=== PATIENT | male | born 1965 | race Caucasian/White ===

== ENCOUNTER 2017-05-11 01:15 | Observation (INO) | payer OTHER ==
[~2017-05-11] VITALS: Ht 175.3 cm; Wt 127.0 kg
--- NOTE | 2017-05-11 01:19 | ED DYSPNEA/ASTHMA COMPLAINT ---
History of Present Illness General Chief Complaint: Dyspnea (COPD, CHF, Other) Stated Complaint: PT C/O DIFF BREATHING 02 SAT 94% HX ASTHMA/COPD Source: patient Exam Limitations: no limitations Vital Signs & Intake/Output Vital Signs & Intake/Output Vital Signs Date Time Temp Pulse Resp B/P B/P Pulse O2 O2 Flow FiO2 Mean Ox Delivery Rate 05/11 0401 70 16 117/56 96 Nasal 2.0L Cannula 05/11 0246 96 Nasal 2.0L Cannula 05/11 0243 90 Room Air 05/11 0127 96.0 74 20 109/72 96 Room Air Allergies Coded Allergies: codeine (Mild, RASH 05/11/17) Triage Nurses Notes Reviewed? yes Onset: Gradual Duration: day(s): Timing: recent history Severity: moderate Activities at Onset: none Prior Episodes/Possible Cause: occasional episodes Modifying Factors: Improves With: rest. Associated Symptoms: cough, wheezing HPI: 52 yo gentleman h/o chf, cad, cva, [place] in october 2016, "they weren't able to get stents in me" presents with dyspnea and dizziness for the past 1-2 days, "but it got real bad today." pt states the he has not taken any blood pressure medications, "because my blood pressure has been too low." He note 9/10 sub sternal chest pain since this afternoon. Past History Medical History Any Pertinent Medical History? see below for history Neurological: CVA Cardiovascular: CAD, CHF, hyperlipidemia, myocardial infarction Respiratory: COPD Renal: nephrolithiasis Surgical History Surgical History: none Family History Hx Contributory? No Review of Systems Review of Systems Constitutional: Reports: no symptoms. EENTM: Reports: no symptoms. Respiratory: Reports: no symptoms. Cardiovascular: Reports: no symptoms. GI: Reports: no symptoms. Genitourinary: Reports: no symptoms. Musculoskeletal: Reports: no symptoms. Skin: Reports: no symptoms. Neurological/Psychological: Reports: no symptoms. Hematologic/Endocrine: Reports: no symptoms. Immunologic/Allergic: Reports: no symptoms. All Other Systems: Reviewed and Negative Physical Exam Physical Exam General Appearance: well developed/nourished Head: atraumatic, normal appearance Eyes: Bilateral: normal appearance. Ears, Nose, Throat: normal pharynx, normal ENT inspection Neck: normal inspection, supple, full range of motion Respiratory: decreased breath sounds Cardiovascular: regular rate/rhythm Gastrointestinal: normal bowel sounds, soft, non-tender, no organomegaly Extremities: 2+ edema bilaterally Neurologic/Psych: slight right sided weakness (at baseline per pt) Core Measures ACS in differential dx? No CVA/TIA Diagnosis No Sepsis Present: No Sepsis Focused Exam Completed? No Progress Differential Diagnosis: AMI, CHF, COPD, pneumonia Plan of Care: Orders Procedure Date/time Status Nothing by Mouth 05/11 B Active Patient Data 05/11 431 Active Saline Lock 05/[address] in observation 05/11 424 Active Misc Message 05/11 424 Active ED Holding Orders 05/11 424 Active Vital Signs 05/11 424 Active Code Status 05/11 424 Active Intake & Output 05/11 156 Active URINALYSIS 05/11 128 Active TROPONIN LEVEL 05/11 118 Complete LIPASE 05/11 118 Complete HEPATIC FUNCTION PANEL 05/11 118 Complete D-DIMER 05/11 118 Complete CBC WITHOUT DIFFERENTIAL 05/11 118 Complete B-TYPE NATRIURETIC PEP (BNP) 05/11 118 Complete BASIC METABOLIC PANEL 05/11 118 Complete AMYLASE 05/11 118 Complete EKG 05/11 118 Active Laboratory Tests 05/11/17 0147: Anion Gap 8, Estimated GFR > 60, BUN/Creatinine Ratio 13.3, Glucose 97, Calcium 8.2 L, Total Bilirubin 0.2, Direct Bilirubin 0.2, AST 11 L, ALT 27, Alkaline Phosphatase 64, Troponin I < 0.01, Ugv-R-Haamtuoxewy Pept 176 H, Total Protein 5.3 L, Albumin 3.0 L, Amylase 37, Lipase 92, D-Dimer High Sensitivty < 200, CBC w Diff NO MAN DIFF REQ, RBC 4.49 L, MCV 87.3, MCH 28.8, MCHC 33.0, RDW 14.5 , MPV 8.4, Gran % 67.8, Lymphocytes % 19.5 L, Monocytes % 9.2, Eosinophils % 3.0, Basophils % 0.5, Absolute Granulocytes 5.9, Absolute Lymphocytes 1.7, Absolute Monocytes 0.8 H, Absolute Eosinophils 0.3, Absolute Basophils 0 Diagnostic Imaging: Viewed by Me: Radiology Read, CT Scan. Discussed w/RAD: Radiology Read, CT Scan. Radiology Impression: PATIENT: HERMINIO NEVAREZ PRESENT AGE: 52 PATIENT ACCOUNT NO: [id number] : 63 LOCATION: [facility] ORDERING PHYSICIAN: Krishna Vaughn MD SERVICE DATE: 05/11/17 EXAM TYPE: CAT - CT HEAD WO IV CONTRAST EXAMINATION: CT HEAD WITHOUT CONTRAST CLINICAL INFORMATION: Dizziness COMPARISON: None TECHNIQUE: Contiguous axial imaging was performed from the skull base to vertex without intravenous administration of contrast. DLP: 938.39 mGy-cm FINDINGS: There is no evidence of acute intracranial hemorrhage or territorial infarction. No abnormal mass effect or midline shift is seen. Izquierdo to white matter differentiation is well preserved. No extra-axial fluid collections are identified. The ventricles are normal in size. There is no abnormal attenuation within the brain parenchyma. The osseous structures and soft tissues are normal. There is partial opacification of the right maxillary and left sphenoid sinuses. There is mild mucosal thickening of the left maxillary sinus and bilateral ethmoid air cells. The mastoid air cells are well-aerated. IMPRESSION: No acute intracranial pathology. DICTATED BY: Patrick Ritter MD DATE/TIME DICTATED:05/11/17242 PROFESSOR OF FORESTRY:LEVY DATE/TIME TRANSCRIBED:05/11/17242 CONFIDENTIAL, DO NOT COPY WITHOUT APPROPRIATE AUTHORIZATION. <Electronically signed in Other Vendor System> SIGNED BY: Patrick Ritter MD 05/11/17 025 CXR Impression: PATIENT: HERMINIO NEVAREZ PRESENT AGE: 52 PATIENT ACCOUNT NO: [id number] : 63 LOCATION: [facility] ORDERING PHYSICIAN: Krishna Vaughn MD SERVICE DATE: 05/11/17 EXAM TYPE: RAD - XRY- PORTABLE CHEST XRAY EXAMINATION: XR PORTABLE CHEST CLINICAL INFORMATION: Dyspnea , CHF COMPARISON: None TECHNIQUE: Portable frontal view of the chest was obtained. FINDINGS: The lungs are somewhat hypoinflated, and there is slight asymmetric elevation of the left hemidiaphragm. There is streaky opacity at the left base favoring subsegmental atelectasis. The lungs otherwise appear clear. No evidence of pneumothorax, significant pleural effusion, or pulmonary edema. The cardiomediastinal silhouette appears grossly unremarkable for technique. No acute osseous findings are seen. IMPRESSION: Low lung volumes with streaky left basilar opacity favoring atelectasis. No overt edema. DICTATED BY: Patrick Ritter MD DATE/TIME DICTATED:05/11/17241 PROFESSOR OF FORESTRY:LEVY DATE/TIME TRANSCRIBED:05/11/17241 CONFIDENTIAL, DO NOT COPY WITHOUT APPROPRIATE AUTHORIZATION. <Electronically signed in Other Vendor System> SIGNED BY: Patrick Ritter MD 05/11/17246 Initial ED EKG: nsr, no acute changes. Departure Departure Disposition: STILL A PATIENT Condition: Stable Clinical Impression Primary Impression: Chest pain Secondary Impressions: Dizziness Departure Forms: Customer Survey General Discharge Information Observation Note Spoke With: Jose Armando YOU,[facility] Patient In: Non-ED OBS Care Area Rationale for Observation: My rational for observation is as follows . pt with chest pain and dyspnea, resolved with aspirin and 02 (nitro spared due to relatively low bp).... this could represent angina... pt merits serial trops/ ekg/cards eval in am... discussed with dr. tejada, covering for dr. cooper. pt also with intractable dizziness, not peripheral vertigo... tia is likely... pt merits neuro consult, consider mri. Critical Care Note Critical Care Note Critical Care Time: non-applicable
[2017-05-11 01:55] LABS: ABSOLUTE BASOPHIL COUNT 0 /CUMM (0.0-0.2); ABSOLUTE EOSINOPHIL COUNT 0.3 /CUMM (0.0-0.7); ABSOLUTE GRANULOCYTE CT 5.9 /CUMM (1.4-6.5); ABSOLUTE LYMPH COUNT 1.7 /CUMM (1.2-3.4); ABSOLUTE MONOCYTE COUNT 0.8 /CUMM (0.10-0.60); BASOPHIL % 0.5 % (0.0-2.0); GRANULOCYTE % 67.8 % (42.2-75.2); HEMATOCRIT 39.2 % (42-52); MEAN CORPUSCULAR HGB 28.8 PG (27.0-31.0); MEAN CORPUSCULAR VOLUME 87.3 FL (80.0-94.0); MEAN PLATELET VOLUME 8.4 FL (7.4-10.4); PLATELET COUNT 216 /CUMM (130-400); RBC DISTRIBUTION WIDTH 14.5 % (11.5-14.5); RED BLOOD CELL CT 4.49 /CUMM (4.70-6.10); WHITE BLOOD CELL COUNT 8.8 /CUMM (4.8-10.8)
--- NOTE | 2017-05-11 02:47 | RADIOLOGY REPORT ---
EXAMINATION: XR PORTABLE CHEST CLINICAL INFORMATION: Dyspnea, CHF COMPARISON: None TECHNIQUE: Portable frontal view of the chest was obtained. FINDINGS: The lungs are somewhat hypoinflated, and there is slight asymmetric elevation of the left hemidiaphragm. There is streaky opacity at the left base favoring subsegmental atelectasis. The lungs otherwise appear clear. No evidence of pneumothorax, significant pleural effusion, or pulmonary edema. The cardiomediastinal silhouette appears grossly unremarkable for technique. No acute osseous findings are seen. IMPRESSION: Low lung volumes with streaky left basilar opacity favoring atelectasis. No overt edema.
--- NOTE | 2017-05-11 02:51 | CT SCAN REPORT ---
EXAMINATION: CT HEAD WITHOUT CONTRAST CLINICAL INFORMATION: Dizziness COMPARISON: None TECHNIQUE: Contiguous axial imaging was performed from the skull base to vertex without intravenous administration of contrast. DLP: 938.39 mGy-cm FINDINGS: There is no evidence of acute intracranial hemorrhage or territorial infarction. No abnormal mass effect or midline shift is seen. Izquierdo to white matter differentiation is well preserved. No extra-axial fluid collections are identified. The ventricles are normal in size. There is no abnormal attenuation within the brain parenchyma. The osseous structures and soft tissues are normal. There is partial opacification of the right maxillary and left sphenoid sinuses. There is mild mucosal thickening of the left maxillary sinus and bilateral ethmoid air cells. The mastoid air cells are well-aerated. IMPRESSION: No acute intracranial pathology.
--- NOTE | 2017-05-11 04:57 | History & Physical ---
Arnie YOU,[facility] 05/11/17 0456: General Information and HPI MD Statement: I have seen and personally examined HERMINIO SIMMONS and documented this H&P. The patient is a 52 year old M who presented with a patient stated chief complaint of [chest pain, dizziness]. Source of Information: patient Exam Limitations: poor historian History of Present Illness: 52 yo M with PMH of CAD, CHF, hyperlipidemia, TN, COPD, CVA (follows at [facility] just for CVA) presented to the ED with complains of shortness of breath on exertion and dizziness/lightheadedness for the past 2-3 days. The patient states that earlier today he was driving from [place] when he didn't feel so good and decided to come to the ED since it was on the way. He also experienced some chest pain around 8/10, sharp in nature, radiating to his left neck at the time of presentation to the ED, which seems to have resolved at the time of the interview. He mentions having similar pain of lesser intensity yesterday afternoon for which he took motrin without significant relief in his symptoms. He normally goes to [facility] for his medical check up. Patient is an extremely poor historian. He fell asleep several times during the interview making it extremely difficult to elicit information from him. He does not recall any medications other than Lipitor. He states he is homeless and lives in his car. He mentions his PCP is Dr Agustina Woods in [place]. His Pharmacy is [facility] in [place] Allergies/Medications Allergies: Coded Allergies: codeine (Mild, RASH 05/11/17) Home Med list Aspirin (Aspirin*) 81 MG TAB.CHEW 1 TAB PO DAILY HEART HEALTH (Reported) Atorvastatin Calcium 20 MG TABLET 1 TAB PO DAILY HLD (Reported) Metoprolol Succinate 50 MG TAB.ER.24H 1 TAB PO DAILY BLOOD PRESSURE (Reported ) Past History Travel History Traveled to [place] past [place] day No Medical History Neurological: CVA EENT: NONE Cardiovascular: CAD, CHF, hyperlipidemia, myocardial infarction Respiratory: COPD Hepatic: NONE Renal: nephrolithiasis Musculoskeletal: gout Psychiatric: NONE Endocrine: NONE Blood Disorders: NONE Surgical History Surgical History: none Review of Systems Review of Systems Constitutional: Reports: unexplained weight loss. Cardiovascular: Reports: chest pain, palpitations, peripheral edema. Respiratory: Reports: cough, short of breath. GI: Denies: abdominal pain. Genitourinary: Reports: no symptoms. Musculoskeletal: Reports: no symptoms. Neurological/Psychological: Reports: headache. Exam & Diagnostic Data Last 24 Hrs of Vital Signs/I&O Vital Signs Date Time Temp Pulse Resp B/P B/P Pulse O2 O2 Flow FiO2 Mean Ox Delivery Rate 05/11 0518 96.7 57 14 104/56 94 Nasal 2.0L Cannula 05/11 0401 70 16 117/56 96 Nasal 2.0L Cannula 05/11 0246 96 Nasal 2.0L Cannula 05/11 0243 90 Room Air 05/11 0127 96.0 74 20 109/72 96 Room Air Intake & Output 05/11 0800 05/11 0000 05/10 1600 Intake Total Output Total Balance Patient 280 lb Weight Physical Exam General Appearance Alert, Oriented X3, Cooperative, No Acute Distress Skin No Rashes, No Breakdown Skin Temp/Moisture Exam: Warm/Dry Sepsis Skin Exam (color): Normal for Ethnicity HEENT Atraumatic Cardiovascular Normal S1, Normal S2, No Murmurs Lungs decreased breath sounds Abdomen Soft, No Tenderness Neurological Normal Speech Extremities No Edema Assessment/Plan Assessment: 52 yo M with PMH of CAD, CHF, hyperlipidemia, TN, COPD, CVA (no deficits) presented to the ED with complains of shortness of breath on exertion and dizziness/lightheadedness for the past 2-3 days. Assessment: 1. Chest Pain, history of CAD. Will need to rule out ACS 2. ?COPD Exacerbation 3. History of CVA 4. Obesity 5. ?OHS/GALE Plan: * Admit patient in Obs * Will r/o ACS with serial trops and EKG. * He was administered one time dose of Aspirin 325mg in the ED which improved his symptoms. * Continue supplemental oxygen to maintain target sats >92% * Cardiology consult in am * Echocardiogram * Follow up blood alcohol levels * Follow up Lipid panel, HbA1c, TFTs * Start SoluMedrol 40mg q12 for ? COPD Exacerbation. Will taper as tolerated. He does have decreased breath sounds on exam which could also be due to his body habitus. * Please obtain patient's medication list from his pharmacy ([facility] in [place]) or from his PCP (Dr Agustina Woods). Also any records about his past medical history. * Consider outpatient sleep study for OHS/GALE * Diet: Heart Healthy * DVT Prophylaxis: SC Lovenox * Code: Full Code As Ranked By This Provider Problem List: 1. Chest pain Core Measures/Misc (12/13) Acute Coronary Syndrome ACS Diagnosis: No Congestive Heart Failure Congestive Heart Failure Diagnosis No Cerebrovascular Accident CVA/TIA Diagnosis: No VTE (View Protocol) VTE Risk Factors Age>40 No Mechanical VTE Prophylaxis d/t N/A MechProphylax Ordered No VTE Pharm Prophylaxis d/t NA PharmProphylax ordered Sepsis (View protocol) Sepsis Present: No Zhen YOU,[facility] 05/11/17 0913: Observation Initial Note - I have personally examined HERMINIO SIMMONS on 05/11/17 at 0919. The disposition of HERMINIO SIMMONS is uncertain at this time and before a determination can be made, he requires a period of observation for the following reasons given the patient's chest pain on exertion is imperative that we will to monitor for any acute coronary event. Failure to do so may result in hemodynamic instability and result in cardiovascular collapse and possobly . Exam & Diagnostic Data Last 24 Hrs of Vital Signs/I&O Vital Signs Date Time Temp Pulse Resp B/P B/P Pulse O2 O2 Flow FiO2 Mean Ox Delivery Rate 05/11 0618 96.7 57 14 104/56 94 Nasal 2.0L Cannula 05/11 0401 70 16 117/56 96 Nasal 2.0L Cannula 05/11 0246 96 Nasal 2.0L Cannula 05/11 0243 90 Room Air 05/11 0127 96.0 74 20 109/72 96 Room Air Intake & Output 05/11 1600 05/11 0800 05/11 0000 Intake Total Output Total Balance Patient 127.006 kg Weight Resident Review Statement Resident Statement: examined this patient, discussed with mechanical engineering intern Other Findings: H Mr Simmons is a 52 old gentleman past medical history of CHF, COPD, coronary artery disease, CVA (mid 2016) who presented to the emergency department at [facility] complaining of chest pain, lightheadedness and dyspnea on exertion. Patient states that his symptoms have begun over last 2-3 days progressively getting worse. The evening prior to admission he was driving from [place] back home and since [facility] happened to be on the way he decided to pop in. At the time of our clinical interaction the patient said he recently experienced chest pain. Pain was rated at a 8 out of 10 in severity described as sharp. Patient states pain radiated up to the left neck. Patient also reports that he's been unable to tolerate very much physical activity. Stating he gets very weak with minimal exertion. He also endorses bilateral foot pain and burning. It must be noted that the patient is extremely poor historian was unable to provide a clear history. He fell asleep multiple times during our clinical interaction despite prompting prompted to wake up on multiple occasions. He was unable to recall any of his medications.Claim history unsuccessful in determining what medications the patient takes. Patient does also not have any family members for us to call for collateral information. Does state that patient's PCP is Dr. Woods. The patient regularly follows up for care at [facility]. R review of systems the patient does endorse a recent weight loss of approximately 10 pounds this is unintentional. He also endorses headaches rated an 8 out of 10 severity. Described as generalized. Endorses occasional palpitations. E Temperature 90.6. Respirations 20. Blood pressure 109/72. Heart rate 74. General Appearance Alert, Oriented X3, Cooperative, No Acute Distress. Obese. Skin No Rashes, No Breakdown Skin Temp/Moisture Exam: Warm/Dry HEENT Atraumatic Cardiovascular Normal S1, Normal S2, No Murmurs. Distant Heart Sounds (likely due to habitus) Lungs decreased breath sounds Abdomen Soft, No Tenderness Neurological Normal Speech Extremities Mild tenderness with light touch. L: WBC 8.8. H&H 12.2 and 39.2. Platelets 216. Sodium 142. Potassium 3.6. BUN 12. Creatinine 0.9. BNP 176. I As Above A/P Mr Simmons is a 52 old gentleman past medical history of CHF, COPD, coronary artery disease, CVA (mid 2016) who presented to the emergency department at [facility] complaining of chest pain, lightheadedness and dyspnea on exertion. Given multiple risk factors his chest pain is possibly ischemic in nature and its imperative that need to be closely monitored over the next 24-48 hours. Chest pain rule out ACS. History of CHF. History of hyperlipidemia. History of COPD. History of CVA. Morbidly Obese Placed the patient in observation in telemetry. Serial EKGs and troponins to rule out ACS. Consider cardiology consultation in a.m. Since proBNP is not drastically elevated we'll hold off on aggressive diuresis. Monitor ins and outs and daily weights. Solu-Medrol 40 mg every 12 for questionable exacerbation of COPD. Obtain lipid panel. Obtain hemoglobin A1c. Obtain echocardiogram. Obtain urine toxicology. Obtain thyroid studies. Check orthostatic vital signs. Every 1 hour neurochecks. Should any neurological deficits been noted consider imaging. Patient may benefit from sleep study as an outpatient. Consider Nutritional consult May consider small dose of gabapentin for peripheral leg pain. Patient's pharmacy is [facility] in [place] he is locations in a.m. will need to be confirmed. Diet heart healthy. DVT prophylaxis with Lovenox. Patient is a full code.
--- NOTE | 2017-05-11 08:14 | Event Note ---
Event Note Event Note: Called pt's PCP: Dr Agustina Woods at [facility] to verify his medical conditions and medications and concerns at 9:20am 05/11/17. Received a call back at 10:30 am and verified his medical/social history as follows: * Patient has h/o HTN on betablocker, COPD not on home oxygen or steroid, likely GALE * Very non-compliant with medications, follow up visits, and lab tests * Patient has been refered to [facility] Inspector, sleep study and community center director in the past and among them likely has only been to a community center director. * Patient was last seen by the PCP yesterday for urinary frequency without burning sensation, discharge, fever, chills, headache, shortness of breath, chest pain, or palpitation, and was discharged on Cipro with labwork recommendation which he did not go for. * Of note, he appearantly is a homeless person who was living in a [facility] in [place], but recently has been living out of his car/truck. He likely had filed for disability (?reason) and was denied and since then has not been following up closely per his PCP. * He appearantly visits many hospitals and doctors and is inconsistent about his symptoms. He had mentioned to his PCP that he was recently discharged from [facility] about a month ago, but we do not have any records of him being here according to the medical records. Few things to add from and after this conversation: * Interestingly, the patient was not giving a coherant history as he mentioned that he was on his way from [place] to [facility] where his PCP was, and on his way he felt chest pain and came to [facility]. This does not seem to match with what we heard from his PCP who also faxed us his medication list today. * According to the community center director, yesterday he had left against medical advice from one of the emergency department of [facility] where appearantly he had visited 20 times already. Plans for the day: * Ruled out ACS with serial trops and EKG * Cardiology recs * bone worker consult, regarding on homelessness and non-compliance * Will keep him on ASA, statin and beta-ivy per cardiology. * Possible discharge tomorrow.
--- NOTE | 2017-05-11 14:30 | PN- Att Addend ---
Attending Addendum Attending Brief Note Patient seen and examined. Discussed with culinary internship and resident. Patient just wants to be left alone and wants to sleep. He keeps falling asleep as I'm talking to him. I got a lot of collateral information from Dr. Mcknight who I called for a cardiology consult and he pulled up his records in [facility]. In addition the patient's PCP spoke to the resident. It appears that Mr. Simmons has underlying coronary artery disease that was non-stentable and he's been managed on aspirin , statin and beta ivy. He has needed Norvasc for high blood pressure. He has made more than 20 ED visits in the recent past to [facility], the most recent one being yesterday and it appears that he does not follow-up with the PCP, is noncompliant with his medications and follow-up and is homeless and living in his car. Yesterday in the emergency room when he was at [facility] when he was told that he is not going to be admitted, he got very very upset and walked out of there. He was brought in here for an observation for chest pain. So far all of his workup is negative. All of his labs are negative , I was worried about hypercapnia but his blood gas is normal, his CT head is negative, EKG is negative for any acute changes and his troponin has been negative. He is not diabetic or prediabetic with a hemoglobin A1c of 6.1. At this point I think that his primary issue is social and lack of a place to stay. I don't think he has any reason to be admitted. Will need to get social work and case management involved to discuss the home situation. Will continue the aspirin, statin, beta ivy. His pressure has been fine and will hold off on the norvasc and will follow closely. He does not need the monitoring manager.
--- NOTE | 2017-05-11 18:52 | Cons- Cardiology ---
General Information and HPI Consulting Request Date of Consult: 05/11/17 Requested By: Jose Armando YOU,Kirti Reason for Consult: Chest pain History of Present Illness: The patient is a 52-year-old male with history of CAD, CHF, hyperlipidemia, NV, and CVA. He presents with complaint of dyspnea on exertion, lightheadedness, dizziness over the past few days. He also experienced a brief episode of left- sided chest discomfort which she described as a sharp pain which was an 8 out of 10, radiating to the left side of his neck. This lasted for a few minutes at the time of presentation, but subsequently resolved. He has had multiple emergency department visits at other hospitals, most recently 2 days ago at [facility] where workup was normal and he was discharged to home. He has a history of coronary artery disease which has been treated medically after an attempted intervention on a chronic total occlusion was unsuccessful. He is homeless and has been living in his car for the past few weeks after being refused admission to shelters. The patient is sleepy, and he is continually is falling asleep during the interview. He is a poor historian. No orthopnea. No diaphoresis. No nausea or vomiting. No palpitations. Allergies/Medications Allergies: Coded Allergies: codeine (Mild, RASH 05/11/17) Current Medications: Current Medications Sig/Devin Start time Last Medication Dose Route Stop Time Status Admin Aspirin 0 .STK-MED ONE 05/11 1454 DC PO Aspirin 81 MG DAILY 05/11 1421 AC 05/11 PO 1454 Aspirin 0 .STK-MED ONE 05/11 0152 DC PO Aspirin 325 MG ONCE ONE 05/11 0130 DC 05/11 PO 05/11 0131 0149 Atorvastatin Calcium 20 MG 1700 05/11 1700 AC PO Enoxaparin Sodium 40 MG DAILY 05/11 1000 AC 05/11 SC 0915 Furosemide 0 .STK-MED ONE 05/11 0427 DC IV Furosemide 20 MG ONCE ONE 05/11 0345 DC 05/11 IV 05/11 0346 0424 Insulin Aspart 0 AT BEDTIME 05/11 2200 CAN SC Insulin Aspart 0 TIDAC 05/11 0800 DC SC Methylprednisolone 40 MG Q12 05/11 1000 DC 05/11 IV 0915 Metoprolol Succinate 50 MG DAILY 05/11 1422 AC 05/11 PO 1454 Review of Systems Review of Systems: No rash. No tremor. No fever. No chills. All other systems were reviewed, and were noted to be negative. Past History Travel History Traveled to [place] past [place] No Medical History Neurological: CVA EENT: NONE Cardiovascular: CAD, CHF, hyperlipidemia, myocardial infarction Respiratory: COPD Hepatic: NONE Renal: nephrolithiasis Musculoskeletal: gout Psychiatric: NONE Endocrine: NONE Blood Disorders: NONE Surgical History Surgical History: 1 Family History Relations & Conditions If Any: FATHER Myocardial infarction Exam & Diagnostic Data Vital Signs and I&O Vital Signs Date Time Temp Pulse Resp B/P B/P Pulse O2 O2 Flow FiO2 Mean Ox Delivery Rate 05/11 1703 96.6 68 20 99/56 94 Room Air 05/11 1454 98.0 72 20 105/57 05/11 1435 98.0 72 20 105/57 97 Room Air 05/11 1216 97.0 60 20 104/60 97 Nasal 1.0L Cannula 05/11 0924 96.0 63 20 102/67 98 Nasal 2.0L Cannula 05/11 0618 96.7 57 14 104/56 94 Nasal 2.0L Cannula 05/11 0401 70 16 117/56 96 Nasal 2.0L Cannula 05/11 0246 96 Nasal 2.0L Cannula 05/11 0243 90 Room Air 05/11 0127 96.0 74 20 109/72 96 Room Air Intake & Output 05/11 1600 05/11 0800 05/11 0000 05/10 1600 05/10 0800 05/10 0000 Intake Total Output Total 500 Balance -500 Output, Urine 500 Patient 280 lb Weight Physical Exam: Gen: The patient is in no acute distress HEENT: Normal nose, ears, and oropharynx. Pupils equal bilaterally. Conjunctiva normal. Neck: Supple with no JVD, no masses, and no thyromegaly Lungs: Clear to auscultation with normal respiratory effort Heart: RRR, S1, S2, no murmurs. No peripheral edema, 2+ pulses in the lower extremities bilaterally Abdomen: Soft, nontender, no masses. No hepatomegaly. No splenomegaly Extremities: No clubbing or cyanosis. Normal muscle strength in the upper and lower extremities Skin: Normal skin turgor with no skin ulcers or lesions noted. Neuro: Cranial nerves intact. Sensation intact Psych: Alert and oriented - 3 with appropriate affect Labs/Heri Results: Laboratory Tests 0205/11 1305 0942 0922 0733 Blood Gas pH (7.35 - 7.45 PH) 7.38 pCO2 (35 - 45 TORR) 40 pO2 (80 - 100 TORR) 89 HCO3 (21 - 28 MEQ/L) 23 ABG O2 Sat (Measured) (>96.0 %) 97.0 P-50 (Temp Corrected) YES Carboxyhemoglobin (1.5 - 5.0 %) 0.1 L O2 Concentration % 2L Temperature (97.0 - 100.0 FARH) 96.7 L O2 Delivery Method NC Chemistry Troponin I (<0.11 ng/ml) < 0.01 < 0.01 Miscellaneous Phlebotomy Draw Site LEFT RADIAL Toxicology Urine Opiates Screen (>2000 NG/ML) < 100.00 Methadone Screen (>300 NG/ML) < 40 Barbiturate Screen (>200 NG/ML) < 60 Ur Phencyclidine Scrn (>25 NG/ML) < 6.00 Amphetamines Screen (>1000 NG/ML) < 100 U Benzodiazepines Scrn (>200 NG/ML) < 85 Urine Cocaine Screen (>300 NG/ML) < 50 Urine Cannabis Screen (>50 NG/ML) < 5.00 05/11 05/11 0619 0147 Chemistry Sodium (137 - 145 mmol/L) 142 Potassium (3.5 - 5.1 mmol/L) 3.6 Chloride (98 - 107 mmol/L) 107 Carbon Dioxide (22 - 30 mmol/L) 27 Anion Gap (5 - 16) 8 BUN (9 - 20 mg/dL) 12 Creatinine (0.7 - 1.2 mg/dL) 0.9 Estimated GFR (>60 ml/min) > 60 BUN/Creatinine Ratio (7 - 25 %) 13.3 Glucose (65 - 99 mg/dL) 97 Hemoglobin A1c (4.2 - 5.8 %) 6.1 H Calcium (8.4 - 10.2 mg/dL) 8.2 L Phosphorus (2.5 - 4.5 mg/dL) 2.1 L Magnesium (1.6 - 2.3 mg/dL) 2.1 Total Bilirubin (0.2 - 1.3 mg/dL) 0.2 Direct Bilirubin (< 0.4 mg/dL) 0.2 AST (17 - 59 U/L) 11 L ALT (21 - 72 U/L) 27 Alkaline Phosphatase (< 127 U/L) 64 Troponin I (<0.11 ng/ml) < 0.01 Job-N-Gwybixyzucl Pept (<125 pg/mL) 176 H Total Protein (6.3 - 8.2 g/dL) 5.3 L Albumin (3.5 - 5.0 g/dL) 3.0 L Triglycerides (<150 mg/dL) 218 H Cholesterol (< 200 MG/DL) 125 LDL Cholesterol, Calc (65 - 129 mg/dL) 51 L HDL Cholesterol (40 - 60 mg/dL) 31 L Cholesterol/HDL Ratio (0.00 - 4.88 %) 4 Amylase (30 - 110 U/L) 37 Lipase (23 - 300 U/L) 92 TSH (0.270 - 4.200 uIU/mL) 0.316 Free T4 (0.64 - 1.79 ng/dL) 1.02 Coagulation D-Dimer High Sensitivty (0 - 243 ng/ml) < 200 Hematology CBC w Diff NO MAN DIFF REQ WBC (4.8 - 10.8 /CUMM) 8.8 RBC (4.70 - 6.10 /CUMM) 4.49 L Hgb (14.0 - 18.0 G/DL) 12.9 L Hct (42 - 52 %) 39.2 L MCV (80.0 - 94.0 FL) 87.3 MCH (27.0 - 31.0 PG) 28.8 MCHC (33.0 - 37.0 G/DL) 33.0 RDW (11.5 - 14.5 %) 14.5 Plt Count (130 - 400 /CUMM) 216 MPV (7.4 - 10.4 FL) 8.4 Gran % (42.2 - 75.2 %) 67.8 Lymphocytes % (20.5 - 51.1 %) 19.5 L Monocytes % (1.7 - 9.3 %) 9.2 Eosinophils % (0 - 5 %) 3.0 Basophils % (0.0 - 2.0 %) 0.5 Absolute Granulocytes (1.4 - 6.5 /CUMM) 5.9 Absolute Lymphocytes (1.2 - 3.4 /CUMM) 1.7 Absolute Monocytes (0.10 - 0.60 /CUMM) 0.8 H Absolute Eosinophils (0.0 - 0.7 /CUMM) 0.3 Absolute Basophils (0.0 - 0.2 /CUMM) 0 Toxicology Serum Alcohol (<10 MG/DL) < 10.0 Urines Urine Color (YEL,AMB,STR) YEL Urine Clarity (CLEAR) CLEAR Urine pH (5.0 - 8.0) 7.0 Ur Specific [place] (1.001 - 1.035) 1.015 Urine Protein (NEG,<30 MG/DL) NEG Urine Ketones (NEG) NEG Urine Nitrite (NEG) NEG Urine Bilirubin (NEG) NEG Urine Urobilinogen (0.1 - 1.0 EU/dl) 0.2 Ur Leukocyte Esterase (NEG) NEG Ur Microscopic EXAM NOT REQUIRED Urine Hemoglobin (NEG) NEG Urine Glucose (N MG/DL) NEG Diagnostic Data EKG Results EKG tracing is independently reviewed, and reveals normal sinus rhythm at 66, normal EKG CXR Results Low lung volumes with streaky left basilar opacity favoring atelectasis. No overt edema. Other Results Head CT: Negative Assessment/Plan Assessment/Plan The patient is a 52-year-old male with history of coronary artery, treated medically presenting with lightheadedness, dizziness, and a brief episode of chest pain. He has a history of CAD with unsuccessful attempt at revascularization of a chronic total occlusion. He is currently drowsy for unclear reason. Myocardial infarction has been ruled out with negative troponin Recommendations: * Discontinue amlodipine unless blood pressure becomes elevated. * Given the improvement in cardiac symptoms and the negative troponin 3, the patient is stable for discharge from cardiac standpoint once social issues have been dealt with. * Continue aspirin, statin, and metoprolol Consult Acknowledgment - Thank you for your consult request.
--- NOTE | 2017-05-11 19:01 | ECHOCARDIOGRAM REPORT ---
HERMINIO NEVAREZ Age: 52 : 1965 Gender: M Exam Date: 05/11/2017 11:19 Exam Location: ER Ht (in): 69 Wt (lb): 280 BSA: 2.55 BP: 104 / 56 Ordering Physician: Abbey Fontaine MD Referring Physician: Abbey Fontaine MD Technologist: Sahil Hernandez ЕЛЕНА Room Number: 5 Indications: CHEST PAIN Rhythm: Sinus Technical Quality: Poor, Technically difficult study FINDINGS Left Ventricle Normal size left ventricle. Mild concentric left ventricular hypertrophy. Mildly reduced global left ventricular systolic function. Mildly abnormal left ventricular ejection fraction estimated at 40-45%. Abnormal relaxation filling pattern of the left ventricle for age (stage 1 diastolic dysfunction). Right Ventricle Normal right ventricular size and function. Right Atrium Normal right atrial size. Left Atrium Normal left atrial size. Mitral Valve Mitral valve mildly thickened. Trace mitral regurgitation. Aortic Valve Trileaflet aortic valve. Mild aortic sclerosis. No aortic valve stenosis or regurgitation. Tricuspid Valve Structurally normal tricuspid valve. Trace tricuspid regurgitation. Right ventricular systolic pressure estimated at 33 mmHg. Pulmonic Valve Pulmonic valve not well visualized, grossly normal. No pulmonic regurgitation. Pericardium No pericardial effusion. Great Vessels Upper normal aortic root size. Mildly dilated proximal ascending aorta (tube). CONCLUSIONS Normal size left ventricle. Mild concentric left ventricular hypertrophy. Mildly reduced global left ventricular systolic function. Mildly abnormal left ventricular ejection fraction estimated at 40- 45%. Abnormal relaxation filling pattern of the left ventricle for age (stage 1 diastolic dysfunction). Normal right ventricular size and function. Normal atrial size. Trace mitral regurgitation. Trace tricuspid regurgitation. Right ventricular systolic pressure estimated at 33 mmHg. Mildly dilated proximal ascending aorta (tube). Estiven Hodge M.D. (Electronically Signed) Final Date: 11 May 2017 19:01 MEASUREMENTS (Male / Female) Normal Values 2D ECHO LV Diastolic Diameter PLAX 4.1 cm 4.2 - 5.9 / 3.9 - 5.3 cm LV Systolic Diameter PLAX 3.3 cm 2.1 - 4.0 cm LV Fractional Shortening PLAX 19.5 % 25 - 46 % LV Ejection Fraction 2D Teich 40.5 % IVS Diastolic Thickness 1.1 cm LVPW Diastolic Thickness 1.1 cm LV Relative Wall Thickness 0.5 LVOT Diameter 2.3 cm Aortic Root Diameter 3.6 cm LA Systolic Diameter LX 3.8 cm 3.0 - 4.0 / 2.7 - 3.8 cm Ascending Aorta Diameter 3.7 cm DOPPLER AV Peak Velocity 111.0 cm/s AV Peak Gradient 4.9 mmHg AV Mean Velocity 75.9 cm/s AV Mean Gradient 3.0 mmHg AV Velocity Time Integral 26.6 cm LVOT Peak Velocity 92.5 cm/s LVOT Peak Gradient 3.4 mmHg LVOT Mean Velocity 59.5 cm/s LVOT Mean Gradient 2.0 mmHg LVOT Velocity Time Integral 21.7 cm LVOT Stroke Volume 90.2 cm AV Area Cont Eq vti 3.4 cm AV Area Cont Eq pk 3.5 cm MV Peak Velocity 86.3 cm/s MV Peak Gradient 3.0 mmHg MV Mean Velocity 50.0 cm/s MV Mean Gradient 1.0 mmHg Mitral E Point Velocity 50.3 cm/s Mitral A Point Velocity 58.7 cm/s Mitral E to A Ratio 0.9 MV PHT Velocity 90.5 cm/s MV Deceleration Henry 321.0 cm/s MV Pressure Half Time 84.6 ms MV Area PHT 2.6 cm MV Deceleration Time 306.0 ms TR Peak Velocity 239.0 cm/s TR Peak Gradient 22.8 mmHg Right Atrial Pressure 10.0 mmHg Pulmonary Artery Systolic Pressu 32.8 mmHg Right Ventricular Systolic Press 32.8 mmHg PV Peak Velocity 91.0 cm/s PV Peak Gradient 3.3 mmHg PV Mean Velocity 61.4 cm/s PV Mean Gradient 2.0 mmHg PV Velocity Time Integral 22.8 cm LV E' Lateral Velocity 11.6 cm/s Mitral E to LV E' Lateral Ratio 4.3 LV E' Septal Velocity 7.0 cm/s Mitral E to LV E' Septal Ratio 7.2
--- NOTE | 2017-05-11 23:28 | Patient Discharge Instructions ---
Discharge Instructions General Discharge Information You were seen/treated for: Chest pain Special Instructions: Please followup with your manager marketing and PCP after the discharge. Please return to the emergeny if symptoms worsen. Diet Continue normal diet: Yes Recommended Diet: Heart Healthy Activity Full Activity/No Limits: No Activity Self Limited: Yes Acute Coronary Syndrome Inclusion Criteria At DC or during hospital stay patient has or had the following: ACS DIAGNOSIS No Discharge Core Measures Meds if any: Prescribed or Continued at Discharge Meds if any: NOT Prescribed or Continued at Discharge Congestive Heart Failure Inclusion Criteria At DC or during hospital stay patient has or had the following: CHF DIAGNOSIS No Discharge Core Measures Meds if any: Prescribed or Continued at Discharge Meds if any: NOT Prescribed or Continued at Discharge Cerebrovascular accident Inclusion Criteria At DC or during hospital stay patient has or had the following: CVA/TIA Diagnosis No Discharge Core Measures Meds if any: Prescribed or Continued at Discharge Meds if any: NOT Prescribed or Continued at Discharge Venous thromboembolism Inclusion Criteria VTE Diagnosis No VTE Type NONE VTE Confirmed by (Test) NONE Discharge Core Measures - Per Current guidelines, there needs to be overlap - treatment for the first 5 days of Warfarin therapy. - If discharged on Warfarin prior to 5 days of - overlap therapy, the patient will need to be - assessed for post discharge needs including - *Post discharge parental anticoagulation - *Warfarin and/or parental anticoagulation education - *Follow up date to check INR post discharge At least 5 days overlap therapy as Inpatient No Meds if any: Prescribed or Continued at Discharge Note: Overlap Therapy is Warfarin and Anticoagulant Meds if any: NOT Prescribed or Continued at Discharge
[2017-05-11] MEDS ORDERED: METOPROLOL SUCC50 M2 PO (23:31)
[2017-05-11] MEDS ORDERED: ASPIRIN81 M4 PO (23:31)
[2017-05-11] MEDS ORDERED: ATORVASTATIN CA20 M1 PO (23:32)
[2017-05-12 04:02] VITALS: BP 93/50
--- NOTE | 2017-05-12 07:20 | PN-Observation ---
Observation Note Observation Note _ I have personally examined HERMINIO NEVAREZ. him disposition is uncertain at this time. Before a determination can be made, he requires continued observation for the following reasons [chest pain, dizziness]. Assessment/Plan Assessment: Mr Nevarez is a 52 old gentleman past medical history of CHF, COPD, coronary artery disease, CVA (mid 2016) who presented to the emergency department at [facility] complaining of chest pain, lightheadedness and dyspnea on exertion. He was observed for chest pain with concerns for an acute coronary event and his shortness of breath. His serial EKGs and troponins did not show an acute coronary event and his echocardiogram reveals mildly reduced ejection fraction of 40-45% with stage I diastolic dysfunction. His head CT showed no acute lesion and his chest x-ray showed clear lung mondragno with an area of atelectasis in the left lung base. In addition, he was reviewed by car lot attendant yesterday. He has been free of chest pain since admission, and his shortness of breath is improved. However he still complains of some dizziness. Of note, inquiries made to his PCP yesterday revealed that he is homeless and noncompliant with medications. It is also clear that he has made multiple recent visits to other hospitals which ended with him leaving abruptly after not getting his wish for an admission. It appears that homelessness and social problems are a major component of his presentation. He currently states that his blood pressure is low, however his blood pressure has been in acceptable limits throughout the admission. At this point the plan is to discharge him after he is reviewed by the administrator social welfare so that he can get as much social support as possible. Plan 1. Chest pain-currently resolved * Acute coronary syndrome was ruled out with negative serial EKGs and troponin * We will continue on metoprolol XL 50 mg daily * Continue aspirin 81 mg daily * Continue atorvastatin 20 mg daily * We'll follow up with administrator social welfare for social support options as patient is stable for discharge at this time * Patient to follow-up with his PCP on discharge Problem List: 1. Chest pain 2. Dizziness DVT/Prophylaxis: pharmacological Subjective Follow-up For: Chest pain, dizziness, shortness of breath Complaints: Dizziness Subjective: Patient states that he still has some dizziness. He also complains of a "low blood pressure" even though his blood pressures have been in acceptable limits overnight. He denies chest pain this morning and shortness of breath. He is very upset that he is being told to move out of his current room in the ER to the hallway pending further review. Review of Systems Constitutional: Denies: chills, fever, weakness. Cardiovascular: Denies: chest pain, edema, palpitations, syncope. Respiratory: Denies: cough, short of breath, sputum production. Gastrointestinal: Denies: abdominal pain, constipation, diarrhea, vomiting. Objective Last 24 Hrs of Vital Signs/I&O Vital Signs Date Time Temp Pulse Resp B/P B/P Pulse O2 O2 Flow FiO2 Mean Ox Delivery Rate 05/12 0757 96.2 66 18 129/55 98 Nasal 2.0L Cannula 05/12 0402 97.3 67 18 93/50 97 Nasal 1.0L Cannula 05/11 2327 97.1 64 15 106/58 94 Room Air 05/11 2021 97.0 72 16 100/65 93 Room Air 05/11 1703 96.6 68 20 99/56 94 Room Air 05/11 1454 98.0 72 20 105/57 05/11 1435 98.0 72 20 105/57 97 Room Air 05/11 1216 97.0 60 20 104/60 97 Nasal 1.0L Cannula Intake & Output 05/12 1600 05/12 0800 05/12 0000 Intake Total 120 Output Total 1400 550 Balance -1400 -430 Intake, Oral 120 Output, Urine 1400 550 Patient 280 lb Weight Physical Exam General Appearance: Alert, Oriented X3, Cooperative, No Acute Distress Skin: No Rashes Skin Temp/Moisture Exam: Warm/Dry Sepsis Skin Exam (color): Normal for Ethnicity HEENT: Atraumatic, PERRLA, EOMI, Mucous Membr. moist/pink Neck: Supple, No JVD, No thryomegaly Lymphatic: Cervical nl Cardiovascular: Regular Rate, Normal S1, Normal S2, No Murmurs Lungs: Clear to Auscultation, Normal Air Movement Abdomen: Normal Bowel Sounds, Soft, No Tenderness, No Hepatospenomegaly, No Masses Neurological: Normal Speech, Strength at 5/5 X4 Ext, Normal Tone, Cranial Nerves 3-12 NL Extremities: No Clubbing, No Cyanosis, No Edema Current Medications: Current Medications Sig/Devin Start time Last Medication Dose Route Stop Time Status Admin Acetaminophen 0 .STK-MED ONE 02/14 0532 DC PO Acetaminophen 650 MG ONCE ONE 05/12 0515 DC PO 05/12 0516 Aspirin 0 .STK-MED ONE 05/11 1454 DC PO Aspirin 81 MG DAILY 05/11 1421 AC 05/11 PO 1454 Atorvastatin Calcium 20 MG 1700 05/11 1700 AC 05/11 PO 1940 Enoxaparin Sodium 40 MG DAILY 05/11 1000 AC 05/11 SC 0915 Insulin Aspart 0 AT BEDTIME 05/11 2200 CAN SC Insulin Aspart 0 TIDAC 05/11 0800 DC SC Methylprednisolone 40 MG Q12 05/11 1000 DC 05/11 IV 0915 Metoprolol Succinate 50 MG DAILY 05/11 1422 AC 05/11 PO 1454 Last 24 Hrs of Labs/Mics: Laboratory Tests 05/11/17 1305: Troponin I < 0.01
[2017-05-12 07:57] VITALS: BP 129/55
--- NOTE | 2017-05-12 11:51 | Event Note ---
Event Note Event Note: Was called because patient was agitated and upset about being moved from his room in the ER into the hallway. I saw the patient and he stated I feel was moved from his room in the ER, he would leave the hospital AGAINST MEDICAL ADVICE. pack worker will [facility] had recommended a psychiatric crisis consultation and this was called. However before patient could be reevaluated he left the hospital AGAINST MEDICAL ADVICE without signing appropriate paperwork. Patient spoke to the secondary social studies teacher earlier today and the resident. He was very resistant to the idea of using shelters and the secondary social studies teacher recommended a crisis eval for feelings of depression. When he was being moved to the [facility] for a crisis eval he got all upset and walked out of the emergency room. He didn't sign the AMA papers and basically just walked out. He is a 52-year-old with underlying non-stentable coronary artery disease managed on aspirin, statin and beta ivy on the outside with a long history of noncompliance, homelessness and multiple ED visits and multiple visits to different providers. He was at [facility] and his PCP's office the day before presenting to the emergency room and got upset when he wasn't admitted there. The primary issue appears to be social and homelessness. He was seen by cardiology and cleared for discharge .
== END 2017-05-12 12:19 | disposition left against medical advice (07) ==
LOC: ERH 01:15 → ERHI 04:25 → CMPBEDREQ 05-12 12:13 → ERHI 05-12 12:19
PROVIDERS: Pediatrics
DX: R07.9 Chest pain, unspecified (principal); I25.10 Atherosclerotic heart disease of native coronary artery without angina pectoris; I50.9 Heart failure, unspecified; E78.5 Hyperlipidemia, unspecified; I21.9 Acute myocardial infarction, unspecified; J44.9 Chronic obstructive pulmonary disease, unspecified; Z86.73 Personal history of transient ischemic attack (TIA), and cerebral infarction without residual deficits; Z79.82 Long term (current) use of aspirin; Z87.442 Personal history of urinary calculi; E66.01 Morbid (severe) obesity due to excess calories; Z59.0 Homelessness; Z79.4 Long term (current) use of insulin; Z91.14 Patient's other noncompliance with medication regimen; R42 Dizziness and giddiness; Z79.899 Other long term (current) drug therapy; I25.2 Old myocardial infarction; Z91.19 Patient's noncompliance with other medical treatment and regimen
CPT/HCPCS: 71045; 80307; 81003; 93005; 93010; 93306; 96372; 96374; 96375; 97110-GP; 97161-GP; 97530-GP; G0378; G0480; J1650; J1940; J2920; J3490